=== PATIENT | female | born 1970 | race African-American/Black ===

== ENCOUNTER 2020-11-05 22:41 | Inpatient (IN) | payer MEDICARE, MEDICAID ==
[~2020-11-05] VITALS: Ht 157.5 cm; Wt 53.3 kg
[2020-11-05 21:30] VITALS: BP 136/69
[2020-11-05 21:40] VITALS: BP 139/69
[2020-11-06] VITALS: BP 134/77
[2020-11-06 04:00] VITALS: BP 128/66
[2020-11-06 08:00] VITALS: BP 142/60
[2020-11-06] MEDS ORDERED: NITROGLYCERIN 0.4MG TABLET SL SL PRN (10:15)
[2020-11-06] MEDS ORDERED: CLONIDINE 0.1MG TABLET PO PRN (10:30)
[2020-11-06] MEDS ORDERED: CEFTRIAXONE 1 G PREMIX 50 ML IV SCH (10:30)
[2020-11-06] MEDS ORDERED: AMLO5TAB88 PO (10:32)
[2020-11-06] MEDS ORDERED: ACET650T37 PO (10:32)
[2020-11-06] MEDS ORDERED: ASCO500C18 PO (10:39)
[2020-11-06] MEDS ORDERED: CEFT1PIG2 IV (10:40)
[2020-11-06] MEDS ORDERED: CLON0.1T PO (10:42)
[2020-11-06] MEDS ORDERED: DAKI TOP (10:44)
[2020-11-06] MEDS ORDERED: DARB60DI IJ (10:47)
[2020-11-06] MEDS ORDERED: FERR324T4 PO (10:50)
[2020-11-06] MEDS ORDERED: DULO20CA18 PO (10:50)
[2020-11-06] MEDS ORDERED: FOLI-43 PO (10:51)
[2020-11-06] MEDS ORDERED: METO25TA6 PO (10:55)
[2020-11-06] MEDS ORDERED: METR250T36 PO (10:57)
[2020-11-06] MEDS ORDERED: ASCORBIC ACID 500 MG TABLET PO SCH (11:00)
[2020-11-06] MEDS: AMLODIPINE 5MG TABLET PO SCH ×2 (11:00→21:00)
[2020-11-06] MEDS ORDERED: FERROUS SULFATE 300MG/5ML UDC PO SCH (11:00)
[2020-11-06] MEDS ORDERED: SEVE800T25 PO (11:01)
[2020-11-06 12:00] VITALS: BP 110/50
[2020-11-06 12:07] LABS: HEMATOCRIT. 26.7 % (36.0-48.0); HEMOGLOBIN. 8.4 g/dL (12.0-16.0); MEAN CORPUSCULAR HEMOGLOBIN 25.6 pg (28.0-32.0); MEAN CORPUSCULAR VOLUME 81.2 fL (81.0-99.0); MEAN PLATELET VOLUME 7.5 fl (7.4-10.4); PLATELET 396 x1000/uL (130-400); RED BLOOD CELL COUNT 3.29 mill/uL (4.2-5.4); RED CELL DISTRIBUTION WIDTH 20.4 % (11.6-14.6)
[2020-11-06 12:19] LABS: CHLORIDE 106 mEq/L (98-107)
[2020-11-06 12:27] LABS: LDL CHOLESTEROL 27 mg/dL (5-100)
[2020-11-06 12:29] LABS: HDL CHOLESTEROL 45 mg/dL (40-59)
[2020-11-06 12:30] LABS: INR 1.1; PROTHROMBIN TIME 11.4 sec (9.6-11.0)
[2020-11-06] MEDS: FAMOTIDINE 20MG TABLET PO SCH (12:38)
[2020-11-06] MEDS: ASCORBIC ACID 500 MG TABLET PO SCH ×2 (12:39→21:01)
[2020-11-06] MEDS: FERROUS SULFATE 325MG TABLET PO SCH (12:39)
[2020-11-06] MEDS: FOLIC ACID 1MG TABLET PO SCH (12:39)
[2020-11-06] MEDS: SEVELAMER CARBONATE 800 MG TABLET PO SCH ×2 (12:39→18:15)
[2020-11-06] MEDS: ZINC SULFATE 220 MG ( 50 ) CAPSULE PO SCH (12:51)
[2020-11-06 13:49] LABS: HEPATITIS B SURFACE ANTIGEN NEGATIVE
[2020-11-06] MEDS: METRONIDAZOLE 250MG TABLET PO SCH ×2 (14:14→21:00)
[2020-11-06] MEDS: CEFTRIAXONE 1,000 MG in DEXTROSE 5% WATER 50 ML IV SCH (14:15)
[2020-11-06 15:24] LABS: PLATELET ESTIMATE NORMAL
[2020-11-06 16:00] VITALS: BP 105/60
[2020-11-06 20:00] VITALS: BP 119/66
[2020-11-06] MEDS: METOPROLOL TARTRATE 25MG TABLET PO SCH (21:00)
[2020-11-06] MEDS ORDERED: ZOLPIDEM TARTRATE 5MG TABLET PO PRN (21:00)
[2020-11-07] VITALS (7 sets, daily range): BP systolic 90–116; BP diastolic 44–65
[2020-11-07] MEDS: METRONIDAZOLE 250MG TABLET PO SCH ×3 (06:57→22:39)
[2020-11-07] MEDS: SEVELAMER CARBONATE 800 MG TABLET PO SCH ×3 (06:57→17:29)
[2020-11-07] MEDS: AMLODIPINE 5MG TABLET PO SCH ×2 (09:00→21:00)
[2020-11-07] MEDS: FOLIC ACID 1MG TABLET PO SCH (09:00)
[2020-11-07] MEDS: FAMOTIDINE 20MG TABLET PO SCH (09:00)
[2020-11-07] MEDS: ZINC SULFATE 220 MG ( 50 ) CAPSULE PO SCH (09:00)
[2020-11-07] MEDS: ASCORBIC ACID 500 MG TABLET PO SCH ×2 (09:00→22:39)
[2020-11-07] MEDS: DULOXETINE HCL 20MG DR CAPSULE PO SCH (09:00)
[2020-11-07] MEDS: FERROUS SULFATE 325MG TABLET PO SCH (09:00)
[2020-11-07] MEDS: METOPROLOL TARTRATE 25MG TABLET PO SCH ×2 (09:00→21:00)
[2020-11-07] MEDS: CEFTRIAXONE 1,000 MG in DEXTROSE 5% WATER 50 ML IV SCH (13:35)
[2020-11-07] MEDS: ACETAMINOPHEN 325MG TABLET PO PRN (22:39)
[2020-11-08] VITALS: BP_SYST 107; BP_SYST 130; BP_DIAS 52; BP_DIAS 88
[2020-11-08 04:00] VITALS: BP 131/51
[2020-11-08 08:00] VITALS: BP 100/49
[2020-11-08] MEDS: METOPROLOL TARTRATE 25MG TABLET PO SCH ×2 (09:00→21:00)
[2020-11-08] MEDS: AMLODIPINE 5MG TABLET PO SCH ×2 (09:00→21:00)
[2020-11-08] MEDS: SEVELAMER CARBONATE 800 MG TABLET PO SCH ×3 (10:31→17:50)
[2020-11-08] MEDS: DULOXETINE HCL 20MG DR CAPSULE PO SCH (10:31)
[2020-11-08] MEDS: FERROUS SULFATE 325MG TABLET PO SCH (10:31)
[2020-11-08] MEDS: FOLIC ACID 1MG TABLET PO SCH (10:31)
[2020-11-08] MEDS: ASCORBIC ACID 500 MG TABLET PO SCH ×2 (10:31→21:00)
[2020-11-08] MEDS: FAMOTIDINE 20MG TABLET PO SCH (10:31)
[2020-11-08] MEDS: ZINC SULFATE 220 MG ( 50 ) CAPSULE PO SCH (10:31)
[2020-11-08 12:00] VITALS: BP 111/56
[2020-11-08] MEDS: CEFTRIAXONE 1,000 MG in DEXTROSE 5% WATER 50 ML IV SCH (13:27)
[2020-11-08] MEDS: METRONIDAZOLE 250MG TABLET PO SCH ×2 (13:28→22:00)
[2020-11-08 16:00] VITALS: BP 135/77
[2020-11-08 20:00] VITALS: BP 125/55
[2020-11-09 04:00] VITALS: BP 130/88
[2020-11-09] MEDS: METRONIDAZOLE 250MG TABLET PO SCH ×3 (06:22→21:21)
[2020-11-09 08:00] VITALS: BP 106/52
[2020-11-09] MEDS: METOPROLOL TARTRATE 25MG TABLET PO SCH ×2 (09:00→21:21)
[2020-11-09] MEDS: MEGESTROL ACETATE 400 MG/10 ML UDC PO SCH (09:00)
[2020-11-09] MEDS: AMLODIPINE 5MG TABLET PO SCH ×2 (09:00→21:21)
[2020-11-09] MEDS: FOLIC ACID 1MG TABLET PO SCH (09:29)
[2020-11-09] MEDS: FERROUS SULFATE 325MG TABLET PO SCH (09:29)
[2020-11-09] MEDS: ASCORBIC ACID 500 MG TABLET PO SCH ×2 (09:29→21:21)
[2020-11-09] MEDS: FAMOTIDINE 20MG TABLET PO SCH (09:29)
[2020-11-09] MEDS: ZINC SULFATE 220 MG ( 50 ) CAPSULE PO SCH (09:29)
[2020-11-09] MEDS: DULOXETINE HCL 20MG DR CAPSULE PO SCH (09:29)
[2020-11-09] MEDS: SEVELAMER CARBONATE 800 MG TABLET PO SCH ×3 (09:30→17:16)
[2020-11-09 12:00] VITALS: BP 133/61
[2020-11-09] MEDS: CEFTRIAXONE 1,000 MG in DEXTROSE 5% WATER 50 ML IV SCH (15:30)
[2020-11-09 16:00] VITALS: BP 137/68
[2020-11-09 20:00] VITALS: BP 141/57
[2020-11-10] VITALS: BP 112/67
[2020-11-10 04:00] VITALS: BP 118/79
[2020-11-10] MEDS: METRONIDAZOLE 250MG TABLET PO SCH ×3 (05:59→21:48)
[2020-11-10 08:00] VITALS: BP 126/63
[2020-11-10] MEDS: FAMOTIDINE 20MG TABLET PO SCH (09:24)
[2020-11-10] MEDS: SEVELAMER CARBONATE 800 MG TABLET PO SCH ×3 (09:24→18:03)
[2020-11-10] MEDS: FOLIC ACID 1MG TABLET PO SCH (09:24)
[2020-11-10] MEDS: ZINC SULFATE 220 MG ( 50 ) CAPSULE PO SCH (09:24)
[2020-11-10] MEDS: FERROUS SULFATE 325MG TABLET PO SCH (09:24)
[2020-11-10] MEDS: MEGESTROL ACETATE 400 MG/10 ML UDC PO SCH (09:24)
[2020-11-10] MEDS: DULOXETINE HCL 20MG DR CAPSULE PO SCH (09:24)
[2020-11-10] MEDS: AMLODIPINE 5MG TABLET PO SCH ×2 (09:24→21:00)
[2020-11-10] MEDS: METOPROLOL TARTRATE 25MG TABLET PO SCH ×2 (09:25→21:00)
[2020-11-10] MEDS: ASCORBIC ACID 500 MG TABLET PO SCH ×2 (10:47→21:35)
[2020-11-10 12:00] VITALS: BP 130/54
[2020-11-10] MEDS: CEFTRIAXONE 1,000 MG in DEXTROSE 5% WATER 50 ML IV SCH (13:17)
[2020-11-10] MEDS ORDERED: DIPHENHYDRAMINE 50MG/ML VIAL IV NR (16:30)
[2020-11-10] MEDS ORDERED: HEPARIN SODIUM 1,000 UNIT/1ML VIAL IV NR (18:38)
[2020-11-10 19:07] LABS: HEMATOCRIT. 23.6 % (36.0-48.0); HEMOGLOBIN. 7.4 g/dL (12.0-16.0); MEAN CORPUSCULAR HEMOGLOBIN 25.1 pg (28.0-32.0); MEAN PLATELET VOLUME 7.8 fl (7.4-10.4); PLATELET 368 x1000/uL (130-400); RED BLOOD CELL COUNT 2.94 mill/uL (4.2-5.4); RED CELL DISTRIBUTION WIDTH 21.3 % (11.6-14.6)
[2020-11-10] MEDS ORDERED: LORAZEPAM 2MG/ML CPJ IV NR (19:15)
[2020-11-10 20:00] VITALS: BP 109/57
[2020-11-10 23:30] VITALS: BP 141/53
[2020-11-11] MEDS: ACETAMINOPHEN 325MG TABLET PO PRN
[2020-11-11 01:22] LABS: PLATELET ESTIMATE NORMAL
[2020-11-11 04:00] VITALS: BP 149/53
[2020-11-11] MEDS: METRONIDAZOLE 250MG TABLET PO SCH ×2 (05:21→13:39)
[2020-11-11] MEDS: SEVELAMER CARBONATE 800 MG TABLET PO SCH ×3 (07:40→18:00)
[2020-11-11 08:00] VITALS: BP 117/53
[2020-11-11] MEDS ORDERED: LORAZEPAM 2MG/ML CPJ IV SCH (08:15)
[2020-11-11] MEDS: DULOXETINE HCL 20MG DR CAPSULE PO SCH (09:13)
[2020-11-11] MEDS: MEGESTROL ACETATE 400 MG/10 ML UDC PO SCH (09:13)
[2020-11-11] MEDS: FOLIC ACID 1MG TABLET PO SCH (09:13)
[2020-11-11] MEDS: FERROUS SULFATE 325MG TABLET PO SCH (09:14)
[2020-11-11] MEDS: AMLODIPINE 5MG TABLET PO SCH ×2 (09:14→21:42)
[2020-11-11] MEDS: METOPROLOL TARTRATE 25MG TABLET PO SCH ×2 (09:14→21:43)
[2020-11-11] MEDS: ASCORBIC ACID 500 MG TABLET PO SCH ×2 (09:14→21:42)
[2020-11-11] MEDS: ZINC SULFATE 220 MG ( 50 ) CAPSULE PO SCH (09:14)
[2020-11-11] MEDS: FAMOTIDINE 20MG TABLET PO SCH (09:14)
[2020-11-11 12:00] VITALS: BP 110/71
[2020-11-11] MEDS ORDERED: DEXTROSE 50% WATER 50ML SYRINGE IV PRN (12:15)
[2020-11-11] MEDS: INSULIN LISPRO 100 UNITS/ML SUBCUT SCH ×3 (13:32→21:46)
[2020-11-11] MEDS ORDERED: LORAZEPAM 2MG/ML CPJ IV NR (14:10)
[2020-11-11] MEDS ORDERED: IOHEXOL-350 100 ML BOTTLE ONE (15:34)
[2020-11-11 16:30] VITALS: BP 117/70
[2020-11-11] MEDS: BLOOD SUGAR DIAGNOSTIC STRIP TEST SCH ×2 (17:20→21:25)
[2020-11-11 20:00] VITALS: BP 134/62
[2020-11-11] MEDS ORDERED: NALOXONE HCL 0.4MG/ML VIAL IV PRN (23:45)
[2020-11-12] VITALS: BP 119/51
[2020-11-12 04:00] VITALS: BP 105/56
[2020-11-12] MEDS: BLOOD SUGAR DIAGNOSTIC STRIP TEST SCH ×4 (05:57→21:00)
[2020-11-12] MEDS: INSULIN LISPRO 100 UNITS/ML SUBCUT SCH ×4 (06:24→21:00)
[2020-11-12] MEDS: SEVELAMER CARBONATE 800 MG TABLET PO SCH ×3 (07:40→16:55)
[2020-11-12 08:00] VITALS: BP 104/37
[2020-11-12] MEDS: ASCORBIC ACID 500 MG TABLET PO SCH ×3 (09:00→22:22)
[2020-11-12] MEDS: ZINC SULFATE 220 MG ( 50 ) CAPSULE PO SCH ×2 (09:00→09:18)
[2020-11-12] MEDS: AMLODIPINE 5MG TABLET PO SCH ×2 (09:00→21:00)
[2020-11-12] MEDS: FOLIC ACID 1MG TABLET PO SCH ×2 (09:00→09:18)
[2020-11-12] MEDS: FAMOTIDINE 20MG TABLET PO SCH ×2 (09:00→09:18)
[2020-11-12] MEDS: DULOXETINE HCL 20MG DR CAPSULE PO SCH ×2 (09:00→09:17)
[2020-11-12] MEDS: MEGESTROL ACETATE 400 MG/10 ML UDC PO SCH ×2 (09:00→09:18)
[2020-11-12] MEDS: FERROUS SULFATE 325MG TABLET PO SCH ×2 (09:00→09:18)
[2020-11-12] MEDS: METOPROLOL TARTRATE 25MG TABLET PO SCH ×2 (09:00→21:00)
[2020-11-12 12:00] VITALS: BP 114/54
[2020-11-12] MEDS: HYDROMORPHONE HCL/PF 2MG/ML CPJ IV PRN (13:22)
[2020-11-12] MEDS ORDERED: [UNRECOGNIZED DRUG - REMARK] XX SCH (15:45)
[2020-11-12 16:00] VITALS: BP 164/66
[2020-11-12] MEDS: METRONIDAZOLE 250MG TABLET PO SCH ×2 (16:55→22:22)
[2020-11-12] MEDS: CEFTRIAXONE 1,000 MG in DEXTROSE 5% WATER 50 ML IV SCH (17:50)
[2020-11-12 20:00] VITALS: BP 91/47
[2020-11-12 20:50] LABS: BASOPHILS % 0.3 % (0.0-2.0); EOSINOPHILS % 0.7 % (0.0-5.0); HEMOGLOBIN. 8.6 g/dL (12.0-16.0); LYMPHOCYTES % 9.1 % (20.0-50.0); MEAN CORPUSCULAR HEMOGLOBIN 25.3 pg (28.0-32.0); MEAN PLATELET VOLUME 8.2 fl (7.4-10.4); NEUTROPHILS % 82.9 % (40.0-76.0); PLATELET 411 x1000/uL (130-400); RED BLOOD CELL COUNT 3.42 mill/uL (4.2-5.4); RED CELL DISTRIBUTION WIDTH 21.2 % (11.6-14.6)
[2020-11-13] VITALS (9 sets, daily range): BP systolic 86–112; BP diastolic 43–70
[2020-11-13] MEDS: METRONIDAZOLE 250MG TABLET PO SCH ×3 (05:13→22:00)
[2020-11-13 06:02] LABS: BASOPHILS % 0.3 % (0.0-2.0); EOSINOPHILS % 0.3 % (0.0-5.0); HEMOGLOBIN. 8.2 g/dL (12.0-16.0); LYMPHOCYTES % 7.2 % (20.0-50.0); MEAN CORPUSCULAR HEMOGLOBIN 25.6 pg (28.0-32.0); MEAN CORPUSCULAR VOLUME 81.3 fL (81.0-99.0); MEAN PLATELET VOLUME 7.7 fl (7.4-10.4); MONOCYTES % 7.3 % (2.0-8.0); NEUTROPHILS % 84.9 % (40.0-76.0); PLATELET 404 x1000/uL (130-400); RED CELL DISTRIBUTION WIDTH 20.9 % (11.6-14.6)
[2020-11-13] MEDS ORDERED: LIDOCAINE HCL 1% 20ML VIAL (Pyxis) INJ ONE ×2 (07:35→08:22)
[2020-11-13] MEDS: SEVELAMER CARBONATE 800 MG TABLET PO SCH ×3 (07:40→17:31)
[2020-11-13] MEDS: INSULIN LISPRO 100 UNITS/ML SUBCUT SCH ×4 (07:40→21:00)
[2020-11-13] MEDS: BLOOD SUGAR DIAGNOSTIC STRIP TEST SCH ×4 (07:59→21:00)
[2020-11-13] MEDS: MEGESTROL ACETATE 400 MG/10 ML UDC PO SCH (09:00)
[2020-11-13] MEDS: METOPROLOL TARTRATE 25MG TABLET PO SCH ×2 (09:00→21:00)
[2020-11-13] MEDS: FOLIC ACID 1MG TABLET PO SCH (09:00)
[2020-11-13] MEDS: ASCORBIC ACID 500 MG TABLET PO SCH ×2 (09:00→21:00)
[2020-11-13] MEDS: FERROUS SULFATE 325MG TABLET PO SCH (09:00)
[2020-11-13] MEDS: DULOXETINE HCL 20MG DR CAPSULE PO SCH (09:00)
[2020-11-13] MEDS: ZINC SULFATE 220 MG ( 50 ) CAPSULE PO SCH (09:00)
[2020-11-13] MEDS: AMLODIPINE 5MG TABLET PO SCH ×2 (09:00→21:00)
[2020-11-13] MEDS: FAMOTIDINE 20MG TABLET PO SCH (09:00)
[2020-11-13] MEDS: HYDROMORPHONE HCL/PF 2MG/ML CPJ IV PRN ×2 (10:49→19:22)
[2020-11-13] MEDS: CEFTRIAXONE 1,000 MG in DEXTROSE 5% WATER 50 ML IV SCH (17:35)
[2020-11-13 17:48] LABS: HCG SCREEN NEGATIVE
[2020-11-13] MEDS ORDERED: VANCOMYCIN HCL 1 GM/VIAL ONE (19:39)
[2020-11-13] MEDS ORDERED: BACITRACIN 15GM TUBE TOP ONE (19:39)
[2020-11-13] MEDS ORDERED: BUPIVACAINE HCL 0.5% (5MG/ML) 50ML ONE (19:39)
[2020-11-13 23:52] LABS: BG BASE EXCESS -3.8 mmol/L (-2.0-2.0); BG CARBOXYHEMOGLOBIN 0.3 % (0.5-1.5); BG DEOXYHEMOGLOBIN 0.4 % (0.0-5.0); BG FRACTION INSPIRED OXYGEN 100; BG HCO3 ACT 21.5 mmol/L (22.0-26.0); BG METHEMOGLOBIN 0.4 % (0.0-1.5); BG OXYGEN SATURATION 99.6 % (92.0-98.5); BG OXYHEMOGLOBIN 98.9 % (94.0-97.0); BG PCO2 39.5 mmHg (35.0-45.0); BG PH 7.353 (7.350-7.450); BG PO2 313.4 mmHg (75.0-100.0); BG SAMPLE SITE LEFT BRACHIAL; BG VENT MODE VENT - AC
[2020-11-14] VITALS (87 sets, daily range): BP systolic 73–168; BP diastolic 27–91
[2020-11-14] MEDS ORDERED: PROPOFOL 10MG/ML 100ML 100 ML IV PRN ×2 (00:15→00:30)
[2020-11-14 00:34] LABS: HEMATOCRIT. 30.8 % (36.0-48.0); HEMOGLOBIN. 10.2 g/dL (12.0-16.0); MEAN CORPUSCULAR HEMOGLOBIN 27.2 pg (28.0-32.0); MEAN CORPUSCULAR VOLUME 82.3 fL (81.0-99.0); MEAN PLATELET VOLUME 7.5 fl (7.4-10.4); PLATELET 327 x1000/uL (130-400); RED BLOOD CELL COUNT 3.74 mill/uL (4.2-5.4); RED CELL DISTRIBUTION WIDTH 18.6 % (11.6-14.6)
[2020-11-14 01:10] LABS: PLATELET ESTIMATE NORMAL
[2020-11-14] MEDS: ACETAMINOPHEN 325MG TABLET PO PRN ×2 (02:22→08:26)
[2020-11-14] MEDS: METRONIDAZOLE 250MG TABLET PO SCH ×3 (05:47→22:02)
[2020-11-14 05:59] LABS: HEMATOCRIT. 28.7 % (36.0-48.0); HEMOGLOBIN. 9.5 g/dL (12.0-16.0); MEAN CORPUSCULAR HEMOGLOBIN 26.8 pg (28.0-32.0); MEAN CORPUSCULAR VOLUME 80.7 fL (81.0-99.0); MEAN PLATELET VOLUME 7.6 fl (7.4-10.4); PLATELET 312 x1000/uL (130-400); RED BLOOD CELL COUNT 3.56 mill/uL (4.2-5.4); RED CELL DISTRIBUTION WIDTH 18.5 % (11.6-14.6)
[2020-11-14] MEDS: BLOOD SUGAR DIAGNOSTIC STRIP TEST SCH ×3 (06:30→17:53)
[2020-11-14] MEDS: INSULIN LISPRO 100 UNITS/ML SUBCUT SCH ×3 (06:41→17:52)
[2020-11-14] MEDS: ZINC SULFATE 220 MG ( 50 ) CAPSULE PO SCH (08:26)
[2020-11-14] MEDS: FERROUS SULFATE 325MG TABLET PO SCH (08:26)
[2020-11-14] MEDS: SEVELAMER CARBONATE 800 MG TABLET PO SCH ×3 (08:26→17:52)
[2020-11-14] MEDS: FOLIC ACID 1MG TABLET PO SCH (08:26)
[2020-11-14] MEDS: FAMOTIDINE 20MG TABLET PO SCH (08:26)
[2020-11-14] MEDS: ASCORBIC ACID 500 MG TABLET PO SCH ×2 (08:26→22:02)
[2020-11-14] MEDS: METOPROLOL TARTRATE 25MG TABLET PO SCH ×2 (08:27→22:09)
[2020-11-14 08:48] LABS: BG BASE EXCESS -5.2 mmol/L (-2.0-2.0); BG DEOXYHEMOGLOBIN 2.7 % (0.0-5.0); BG FRACTION INSPIRED OXYGEN 40; BG HCO3 ACT 18.7 mmol/L (22.0-26.0); BG METHEMOGLOBIN 0.3 % (0.0-1.5); BG OXYGEN SATURATION 97.3 % (92.0-98.5); BG PCO2 30.5 mmHg (35.0-45.0); BG PH 7.405 (7.350-7.450); BG PO2 92.4 mmHg (75.0-100.0); BG SAMPLE SITE RIGHT BRACHIAL; BG TOTAL HEMOGLOBIN 9.5 g/dL (12.0-18.0); BG VENT MODE VENT - AC
[2020-11-14] MEDS: AMLODIPINE 5MG TABLET PO SCH ×2 (09:00→21:00)
[2020-11-14] MEDS: MEGESTROL ACETATE 400 MG/10 ML UDC PO SCH (09:00)
[2020-11-14] MEDS: DULOXETINE HCL 20MG DR CAPSULE PO SCH (10:00)
[2020-11-14 10:18] LABS: PLATELET ESTIMATE NORMAL
[2020-11-14 11:45] LABS: BG BASE EXCESS -2.3 mmol/L (-2.0-2.0); BG CARBOXYHEMOGLOBIN 0.2 % (0.5-1.5); BG DEOXYHEMOGLOBIN 0.9 % (0.0-5.0); BG HCO3 ACT 21.1 mmol/L (22.0-26.0); BG METHEMOGLOBIN 0.4 % (0.0-1.5); BG OXYGEN SATURATION 99.1 % (92.0-98.5); BG OXYHEMOGLOBIN 98.5 % (94.0-97.0); BG PCO2 32.2 mmHg (35.0-45.0); BG PH 7.435 (7.350-7.450); BG SAMPLE SITE RIGHT BRACHIAL; BG TOTAL HEMOGLOBIN 11.8 g/dL (12.0-18.0); BG VENT MODE VENT - CPAP
[2020-11-14] MEDS: HYDROMORPHONE HCL/PF 2MG/ML CPJ IV PRN ×2 (15:13→23:46)
[2020-11-14] MEDS: CEFTRIAXONE 1,000 MG in DEXTROSE 5% WATER 50 ML IV SCH (17:52)
[2020-11-15] VITALS (42 sets, daily range): BP systolic 80–120; BP diastolic 45–75
[2020-11-15] MEDS: ACETAMINOPHEN 325MG TABLET PO PRN ×2 (03:55→21:22)
[2020-11-15 05:35] LABS: HEMATOCRIT. 27.8 % (36.0-48.0); HEMOGLOBIN. 8.8 g/dL (12.0-16.0); MEAN CORPUSCULAR HEMOGLOBIN 26.1 pg (28.0-32.0); MEAN CORPUSCULAR VOLUME 82.1 fL (81.0-99.0); MEAN PLATELET VOLUME 7.9 fl (7.4-10.4); PLATELET 309 x1000/uL (130-400); RED BLOOD CELL COUNT 3.38 mill/uL (4.2-5.4); RED CELL DISTRIBUTION WIDTH 19.1 % (11.6-14.6)
[2020-11-15] MEDS: BLOOD SUGAR DIAGNOSTIC STRIP TEST SCH ×4 (05:38→18:04)
[2020-11-15] MEDS: INSULIN LISPRO 100 UNITS/ML SUBCUT SCH ×4 (05:42→18:10)
[2020-11-15] MEDS: METRONIDAZOLE 250MG TABLET PO SCH ×3 (05:42→21:21)
[2020-11-15] MEDS: MEGESTROL ACETATE 400 MG/10 ML UDC PO SCH (08:11)
[2020-11-15] MEDS: FOLIC ACID 1MG TABLET PO SCH (08:12)
[2020-11-15] MEDS: ASCORBIC ACID 500 MG TABLET PO SCH ×2 (08:12→21:11)
[2020-11-15] MEDS: AMLODIPINE 5MG TABLET PO SCH ×2 (08:12→21:00)
[2020-11-15] MEDS: METOPROLOL TARTRATE 25MG TABLET PO SCH ×2 (08:12→21:11)
[2020-11-15] MEDS: FERROUS SULFATE 325MG TABLET PO SCH (08:12)
[2020-11-15] MEDS: ZINC SULFATE 220 MG ( 50 ) CAPSULE PO SCH (08:12)
[2020-11-15] MEDS: FAMOTIDINE 20MG TABLET PO SCH (08:12)
[2020-11-15] MEDS: SEVELAMER CARBONATE 800 MG TABLET PO SCH ×3 (08:12→18:12)
[2020-11-15] MEDS: DULOXETINE HCL 20MG DR CAPSULE PO SCH (08:12)
[2020-11-15 10:17] LABS: PLATELET ESTIMATE NORMAL
[2020-11-15] MEDS: HYDROMORPHONE HCL/PF 2MG/ML CPJ IV PRN (13:30)
[2020-11-15] MEDS: CEFTRIAXONE 1,000 MG in DEXTROSE 5% WATER 50 ML IV SCH (18:10)
[2020-11-15] MEDS: MIDODRINE HCL 5MG TABLET NG SCH (23:30)
[2020-11-16] VITALS (96 sets, daily range): BP systolic 56–155; BP diastolic 13–94
[2020-11-16] MEDS: BLOOD SUGAR DIAGNOSTIC STRIP TEST SCH ×4 (00:26→17:41)
[2020-11-16] MEDS: INSULIN LISPRO 100 UNITS/ML SUBCUT SCH ×4 (00:35→17:54)
[2020-11-16 05:54] LABS: HEMATOCRIT. 29.3 % (36.0-48.0); HEMOGLOBIN. 9.3 g/dL (12.0-16.0); MEAN CORPUSCULAR HEMOGLOBIN 26.4 pg (28.0-32.0); MEAN PLATELET VOLUME 8.5 fl (7.4-10.4); PLATELET 301 x1000/uL (130-400); RED BLOOD CELL COUNT 3.53 mill/uL (4.2-5.4); RED CELL DISTRIBUTION WIDTH 19.5 % (11.6-14.6)
[2020-11-16 06:23] LABS: PHOSPHORUS 5.4 mg/dL (2.5-4.9)
[2020-11-16] MEDS: METRONIDAZOLE 250MG TABLET PO SCH (07:29)
[2020-11-16] MEDS ORDERED: NOREPINEPHRINE 32 MG in DEXT 5% WATER 218 ML IV PRN (08:00)
[2020-11-16] MEDS: FOLIC ACID 1MG TABLET PO SCH (08:26)
[2020-11-16] MEDS: ASCORBIC ACID 500 MG TABLET PO SCH ×2 (08:26→22:30)
[2020-11-16] MEDS: SEVELAMER CARBONATE 800 MG TABLET PO SCH ×3 (08:26→17:53)
[2020-11-16] MEDS: FAMOTIDINE 20MG TABLET PO SCH (08:26)
[2020-11-16] MEDS: DULOXETINE HCL 20MG DR CAPSULE PO SCH (08:26)
[2020-11-16] MEDS: MIDODRINE HCL 5MG TABLET NG SCH ×3 (08:26→17:53)
[2020-11-16] MEDS: ZINC SULFATE 220 MG ( 50 ) CAPSULE PO SCH (08:26)
[2020-11-16] MEDS: FERROUS SULFATE 325MG TABLET PO SCH (08:27)
[2020-11-16] MEDS: AMLODIPINE 5MG TABLET PO SCH ×2 (08:27→21:00)
[2020-11-16] MEDS: MEGESTROL ACETATE 400 MG/10 ML UDC PO SCH (08:27)
[2020-11-16] MEDS: ACETAMINOPHEN 325MG TABLET PO PRN (08:46)
[2020-11-16 09:45] LABS: PLATELET ESTIMATE NORMAL
[2020-11-16] MEDS: HYDROMORPHONE HCL/PF 2MG/ML CPJ IV PRN (14:16)
[2020-11-16] MEDS: PHENYLEPHRINE 100 MG in DEXT 5% WATER 240 ML IV PRN (14:31)
[2020-11-16] MEDS: PIPERACILLIN/TAZOBACTAM 3.375 G in DEXTROSE 5% WATER 50 ML IV SCH ×2 (14:58→22:39)
[2020-11-16] MEDS: VANCOMYCIN HCL 1000 MG/20 ML ORAL PO SCH (17:53)
[2020-11-16] MEDS ORDERED: METOPROLOL TARTRATE 25MG TABLET PO SCH (21:00)
[2020-11-16] MEDS ORDERED: EPOETIN ALFA-EPBX 4,000 UNIT/ML VIAL SUBCUT SCH (21:00)
[2020-11-16] MEDS ORDERED: METRONIDAZOLE 500 MG PREMIX 100 ML IV SCH (21:00)
[2020-11-16] MEDS ORDERED: VASOPRESSIN 20 UNIT in SODIUM CHLORIDE 0.9% 99 ML IV PRN (22:00)
[2020-11-16] MEDS ORDERED: ALBUMIN HUMAN 25GM/100ML (25%) IV ONE (22:00)
[2020-11-17] VITALS (59 sets, daily range): BP systolic 40–122; BP diastolic 19–83
[2020-11-17] MEDS: BLOOD SUGAR DIAGNOSTIC STRIP TEST SCH ×2 (00:39→06:00)
[2020-11-17 02:03] LABS: BG BASE EXCESS -18.6 mmol/L (-2.0-2.0); BG CARBOXYHEMOGLOBIN 0.3 % (0.5-1.5); BG DEOXYHEMOGLOBIN 15.9 % (0.0-5.0); BG FRACTION INSPIRED OXYGEN 35; BG HCO3 ACT 8.1 mmol/L (22.0-26.0); BG METHEMOGLOBIN 0.4 % (0.0-1.5); BG OXYHEMOGLOBIN 83.4 % (94.0-97.0); BG PCO2 22.4 mmHg (35.0-45.0); BG PH 7.175 (7.350-7.450); BG PO2 64.1 mmHg (75.0-100.0); BG SAMPLE SITE LEFT BRACHIAL; BG TOTAL HEMOGLOBIN 11.7 g/dL (12.0-18.0); BG VENT MODE COOL AEROSOL
[2020-11-17] MEDS ORDERED: FENTANYL CITRATE/PF 2,500 MCG in SODIUM CHLORIDE 0.9% 200 ML IV PRN (02:45)
[2020-11-17] MEDS ORDERED: MIDAZOLAM HCL 100 MG in SODIUM CHLORIDE 0.9% 100 ML IV PRN (02:45)
[2020-11-17] MEDS ORDERED: MIDAZOLAM 100MG/100ML PMX 100 ML IV PRN (02:45)
[2020-11-17] MEDS ORDERED: SODIUM BICARBONATE 100 MEQ in DEXTROSE 5% WATER 1,000 ML IV SCH (03:00)
[2020-11-17] MEDS: PHENYLEPHRINE 100 MG in DEXT 5% WATER 240 ML IV PRN (03:24)
[2020-11-17 05:42] LABS: HEMATOCRIT. 40.2 % (36.0-48.0); HEMOGLOBIN. 11.1 g/dL (12.0-16.0); MEAN CORPUSCULAR HEMOGLOBIN 27.1 pg (28.0-32.0); MEAN CORPUSCULAR VOLUME 98.3 fL (81.0-99.0); MEAN PLATELET VOLUME 9.7 fl (7.4-10.4); PLATELET 263 x1000/uL (130-400); RED BLOOD CELL COUNT 4.09 mill/uL (4.2-5.4); RED CELL DISTRIBUTION WIDTH 21.3 % (11.6-14.6)
[2020-11-17 05:46] LABS: BG BASE EXCESS -29.9 mmol/L (-2.0-2.0); BG CARBOXYHEMOGLOBIN 0.3 % (0.5-1.5); BG FRACTION INSPIRED OXYGEN 100; BG HCO3 ACT 4.3 mmol/L (22.0-26.0); BG METHEMOGLOBIN 0.7 % (0.0-1.5); BG OXYGEN SATURATION 92.9 % (92.0-98.5); BG PCO2 30.9 mmHg (35.0-45.0); BG PH 6.766 (7.350-7.450); BG SAMPLE SITE RIGHT FEMORAL; BG TOTAL HEMOGLOBIN 11.1 g/dL (12.0-18.0); BG TOTAL RESPIRATORY RATE 16 b/min; BG VENT MODE VENT - AC
[2020-11-17 05:48] LABS: CHLORIDE 97 mEq/L (98-107)
[2020-11-17] MEDS: VANCOMYCIN HCL 1000 MG/20 ML ORAL PO SCH ×2 (06:00)
[2020-11-17] MEDS: INSULIN LISPRO 100 UNITS/ML SUBCUT SCH ×2 (06:00)
[2020-11-17] MEDS ORDERED: SODIUM BICARBONATE 8.4% 1 MEQ/ML 50ML SYR IV STA (06:22)
[2020-11-17] MEDS ORDERED: DEXTROSE 50% WATER 50ML SYRINGE IV STA (06:22)
[2020-11-17] MEDS ORDERED: CALCIUM GLUCONATE 100MG/ML 10ML VIAL IV STA (06:22)
[2020-11-17] MEDS ORDERED: INSULIN REGULAR (HUMULIN R) 300UNITS/3ML VIAL IV STA (06:22)
[2020-11-17 06:27] LABS: BG BASE EXCESS -20.7 mmol/L (-2.0-2.0); BG CARBOXYHEMOGLOBIN 0.3 % (0.5-1.5); BG DEOXYHEMOGLOBIN 1.9 % (0.0-5.0); BG FRACTION INSPIRED OXYGEN 100; BG HCO3 ACT 9.7 mmol/L (22.0-26.0); BG METHEMOGLOBIN 0.9 % (0.0-1.5); BG OXYGEN SATURATION 98.1 % (92.0-98.5); BG OXYHEMOGLOBIN 96.9 % (94.0-97.0); BG PCO2 42.8 mmHg (35.0-45.0); BG PH 6.973 (7.350-7.450); BG PO2 182.4 mmHg (75.0-100.0); BG TOTAL HEMOGLOBIN 8.3 g/dL (12.0-18.0); BG TOTAL RESPIRATORY RATE 15 b/min; BG VENT MODE VENT - AC
[2020-11-17] MEDS ORDERED: SODIUM POLYSTYRENE SULFONATE 15 G/60 ML BOT PO SCH (06:30)
[2020-11-17] MEDS ORDERED: SODIUM BICARBONATE 8.4% 1 MEQ/ML 50ML SYR IV NR (07:00)
[2020-11-17] MEDS ORDERED: MORPHINE SULFATE 250 MG in DEXT 5% WATER 240 ML IV PRN (07:30)
[2020-11-17] MEDS ORDERED: SUCCINYLCHOLINE CHLORIDE 200MG/10ML IV ONE (08:25)
[2020-11-17] MEDS ORDERED: ETOMIDATE 2MG/ML 10ML VIAL IV ONE (08:25)
[2020-11-17] MEDS ORDERED: SODIUM BICARBONATE 8.4% 1 MEQ/ML 50ML SYR IV ONE (08:26)
[2020-11-17] MEDS ORDERED: CALCIUM CHLORIDE 1GM/10ML SYR IV ONE (08:26)
[2020-11-17] MEDS ORDERED: ATROPINE SULFATE 1MG/10ML SYR ONE (08:26)
[2020-11-17] MEDS ORDERED: MAGNESIUM SULFATE 4G IN WATER 100ML PREMIX IV ONE (08:26)
[2020-11-17] MEDS ORDERED: EPINEPHRINE 0.1MG/ML (1:10,000) 10ML SYR ONE (08:26)
[2020-11-17] MEDS ORDERED: DEXTROSE 50% WATER 50ML SYRINGE IV ONE (08:26)
[2020-11-17] MEDS ORDERED: AMIODARONE HCL 50MG/ML 3ML VIAL IV ONE (08:26)
[2020-11-17 09:53] LABS: PLATELET ESTIMATE NORMAL
== END 2020-11-17 08:05 | DRG 853 ==
LOC: 6EST 22:41 → 8WST 11-08 22:14 → CVICU 11-13 22:50 → 8WST 11-13 23:45 → CVICU 11-13 23:49
PROVIDERS: ADMIT Hospitalist; ATTEND Hospitalist
PROC: 5A1D70Z Performance of Urinary Filtration, Intermittent, Less than 6 Hours Per Day (ICD-10-PCS; 2020-11-07)
PROC: 5A1D70Z Performance of Urinary Filtration, Intermittent, Less than 6 Hours Per Day (ICD-10-PCS; 2020-11-10)
PROC: 5A1D70Z Performance of Urinary Filtration, Intermittent, Less than 6 Hours Per Day (ICD-10-PCS; 2020-11-12)
PROC: 0Y6J0Z3 Detachment at Left Lower Leg, Low, Open Approach (ICD-10-PCS; principal; 2020-11-13)
PROC: 0Y6H0Z3 Detachment at Right Lower Leg, Low, Open Approach (ICD-10-PCS; 2020-11-13)
PROC: B518ZZA Fluoroscopy of Superior Vena Cava, Guidance (ICD-10-PCS; 2020-11-13)
PROC: B548ZZA Ultrasonography of Superior Vena Cava, Guidance (ICD-10-PCS; 2020-11-13)
PROC: 02HV33Z Insertion of Infusion Device into Superior Vena Cava, Percutaneous Approach (ICD-10-PCS; 2020-11-13)
PROC: 30233N1 Transfusion of Nonautologous Red Blood Cells into Peripheral Vein, Percutaneous Approach (ICD-10-PCS; 2020-11-13)
PROC: 5A1D70Z Performance of Urinary Filtration, Intermittent, Less than 6 Hours Per Day (ICD-10-PCS; 2020-11-14)
PROC: 5A1D70Z Performance of Urinary Filtration, Intermittent, Less than 6 Hours Per Day (ICD-10-PCS; 2020-11-16)
PROC: 5A12012 Performance of Cardiac Output, Single, Manual (ICD-10-PCS; 2020-11-17)
PROC: 5A2204Z Restoration of Cardiac Rhythm, Single (ICD-10-PCS; 2020-11-17)
PROC: 0BH17EZ Insertion of Endotracheal Airway into Trachea, Via Natural or Artificial Opening (ICD-10-PCS; 2020-11-17)
PROC: 5A1935Z Respiratory Ventilation, Less than 24 Consecutive Hours (ICD-10-PCS; 2020-11-17)
DX: A41.9 Sepsis, unspecified organism (principal); G93.41 Metabolic encephalopathy; N18.6 End stage renal disease; A48.0 Gas gangrene; J96.91 Respiratory failure, unspecified with hypoxia; J96.92 Respiratory failure, unspecified with hypercapnia; I47.1 Supraventricular tachycardia; E44.0 Moderate protein-calorie malnutrition; R47.01 Aphasia; I13.2 Hypertensive heart and chronic kidney disease with heart failure and with stage 5 chronic kidney disease, or end stage renal disease; I47.2 Ventricular tachycardia; I70.263 Atherosclerosis of native arteries of extremities with gangrene, bilateral legs; Z66 Do not resuscitate; R65.20 Severe sepsis without septic shock; E11.22 Type 2 diabetes mellitus with diabetic chronic kidney disease; D63.8 Anemia in other chronic diseases classified elsewhere; I27.21 Secondary pulmonary arterial hypertension; R13.10 Dysphagia, unspecified; I25.10 Atherosclerotic heart disease of native coronary artery without angina pectoris; I46.9 Cardiac arrest, cause unspecified; R00.1 Bradycardia, unspecified; E11.649 Type 2 diabetes mellitus with hypoglycemia without coma; E87.5 Hyperkalemia; Z20.822 Contact with and (suspected) exposure to COVID-19; E78.5 Hyperlipidemia, unspecified; E66.01 Morbid (severe) obesity due to excess calories; I50.9 Heart failure, unspecified; Z99.2 Dependence on renal dialysis; Z86.73 Personal history of transient ischemic attack (TIA), and cerebral infarction without residual deficits; Z89.422 Acquired absence of other left toe(s); Z68.21 Body mass index [BMI] 21.0-21.9, adult
CPT/HCPCS: 36415; 36573; 36600; 71045; 75635; 80048; 80053; 80061; 82375; 82550; 82805; 82962; 83036; 83735; 84100; 84478; 84703; 85025; 86705; 86709; 86803; 86850; 86900; 86920; 87070; 87077; 87106; 87186; 87340; 87426; 88307; 88311; 92950; 93005; 93923; 94002; A6261; C1725; C1769; J0282; J0330; J0461; J0610; J0696; J0885; J1170; J1200; J1644; J1815; J2060; J2274; J2370; J2543; J2704; J3370; J3475; J3490; J7040; J7060; J7070; P9016; Q9967; A4315